=== PATIENT | male | born 1945 | race Caucasian/White ===

== ENCOUNTER → 2018-05-10 | Outpatient (CLI) | payer MEDICARE, OTHER ==
--- NOTE | 2018-05-10 08:25 | US ---
EXAMINATION TYPE: US venous doppler duplex LE RT DATE OF EXAM: 05/10/2018 7:11 AM COMPARISON: NONE CLINICAL HISTORY: Rt leg edema R60.0. Pt states right leg swelling x 3 weeks/ No known prior DVT SIDE PERFORMED: Right TECHNIQUE: The lower extremity deep venous system is examined utilizing real time linear array sonog bárbara with graded compression, doppler sonography and color-flow sonography. VESSELS IMAGED: External Iliac Vein (EIV) Common Femoral Vein Deep Femoral Vein Greater Saphenous Vein * Femoral Vein Popliteal Vein Small Saphenous Vein * Proximal Calf Veins (* superficial vessels) Right Leg: Negative for DVT, probable complex Amor's cyst right pop fossa= 6.7 x 1.3 x 4.7 cm Grayscale, color doppler, spectral doppler imaging performed of the deep veins of the right lower ex tremity. There is normal flow, compressibility, vascular waveforms. Moderate to large size popliteal cyst marked towards end of study. IMPRESSION: No ultrasound evidence for acute DVT in the right lower extremity.
== END | disposition home or self-care (01) ==
LOC: RADUSWWP 06:41
PROVIDERS: ATTEND Family Medicine
DX: R60.0 Localized edema (principal)

== ENCOUNTER 2020-05-23 03:46 | Inpatient (IN) | payer MEDICARE ==
--- NOTE | 2020-05-23 04:22 | ED ---
Abdominal Pain HPI - General Chief Complaint: Abdominal Pain Stated Complaint: Abdominal pain Time Seen by Provider: 05/23/20 03:53 Source: patient, family, RN notes reviewed, old records reviewed Mode of arrival: ambulatory Limitations: no limitations - History of Present Illness Initial Comments: This is a 74-year-old male DF for evaluation patient Dese for 3 days of constipation has history of hernia repair. Patient's pain is here no fevers. He denies any and nausea no vomiting. Appetite is been diminished. Patient has persistent abdominal pain with persistent constipation unable to have significant bowel movement again 3 days. Pain is severe mainly located right lower quadrant believes he may have eaten that MD Complaint: abdominal pain (Right lower quadrant) -: days(s) (3) Location: RLQ Radiation: RLQ Migration to: RLQ Severity: severe Severity scale (1-10): 10 Quality: stabbing, aching Consistency: constant Improves With: nothing Worsens With: nothing Associated Symptoms: nausea, constipation - Related Data Allergies Allergy/AdvReac Type Severity Reaction Status Date / Time prednisone Allergy Unknown Verified 05/23/20 03:51 Review of Systems ROS Statement: Those systems with pertinent positive or pertinent negative responses have been documented in the HPI. ROS Other: All systems not noted in ROS Statement are negative. Past Medical History Past Medical History: No Reported History History of Any Multi-Drug Resistant Organisms: None Reported Past Surgical History: Hernia Repair Smoking Status: Former smoker Past Alcohol Use History: Occasional Past Drug Use History: None Reported General Exam Limitations: no limitations General appearance: alert, in no apparent distress Head exam: Present: atraumatic, normocephalic, normal inspection Eye exam: Present: normal appearance, PERRL, EOMI. Absent: scleral icterus, conjunctival injection, periorbital swelling ENT exam: Present: normal exam, mucous membranes moist Neck exam: Present: normal inspection. Absent: tenderness, meningismus, lymphadenopathy Respiratory exam: Present: normal lung sounds bilaterally. Absent: respiratory distress, wheezes, rales, rhonchi, stridor Cardiovascular Exam: Present: regular rate, normal rhythm, normal heart sounds. Absent: systolic murmur, diastolic murmur, rubs, gallop, clicks GI/Abdominal exam: Present: distended (Right lower quadrant), tenderness, guarding, normal bowel sounds. Absent: soft, rebound, rigid Extremities exam: Present: normal inspection, full ROM, normal capillary refill. Absent: tenderness, pedal edema, joint swelling, calf tenderness Back exam: Present: normal inspection Neurological exam: Present: alert, oriented X3, CN II-XII intact Psychiatric exam: Present: normal affect, normal mood Skin exam: Present: warm, dry, intact, normal color. Absent: rash Course Vital Signs 05/23/20 05/23/20 03:47 05:52 Temperature 99.2 F Pulse Rate 94 76 Respiratory 20 20 Rate Blood Pressure 145/84 141/66 O2 Sat by Pulse 97 95 Oximetry - Reevaluation(s) Reevaluation #1: 05/23/20 06:21 Medical records reviewed Reevaluation #2: 05/23/20 06:22 Patient has good pain control Reevaluation #3: 05/23/20 06:22 Spoke with patient and regarding symptoms, and findings questions answered - Consultations Consultation #1: Spoke with Dr. Howard will keep patient in the operating room before or Medical Decision Making - Medical Decision Making 34 male DF for evaluation of severe abdominal pain. Patient will be admitted to the operating room for surgical evaluation and treatment - Lab Data Result diagrams: 05/23/20 04:31 05/23/20 04:31 Lab Results 05/23/20 05/23/20 05/23/20 Range/Units 04:31 04:31 04:31 WBC 16.9 H (3.8-10.6) k/uL RBC 5.21 (4.30-5.90) m/uL Hgb 15.0 (13.0-17.5) gm/dL Hct 46.3 (39.0-53.0) % MCV 88.9 (80.0-100.0) fL MCH 28.8 (25.0-35.0) pg MCHC 32.4 (31.0-37.0) g/dL RDW 13.7 (11.5-15.5) % Plt Count 194 (150-450) k/uL Neutrophils % 88 % Lymphocytes % 6 % Monocytes % 4 % Eosinophils % 2 % Basophils % 0 % Neutrophils # 14.8 H (1.3-7.7) k/uL Lymphocytes # 0.9 L (1.0-4.8) k/uL Monocytes # 0.7 (0-1.0) k/uL Eosinophils # 0.3 (0-0.7) k/uL Basophils # 0.0 (0-0.2) k/uL Sodium 132 L (137-145) mmol/L Potassium 4.2 (3.5-5.1) mmol/L Chloride 102 (98-107) mmol/L Carbon Dioxide 23 (22-30) mmol/L Anion Gap 7 mmol/L BUN 10 (9-20) mg/dL Creatinine 0.85 (0.66-1.25) mg/dL Est GFR (CKD-EPI)AfAm >90 (>60 ml/min/1.73 sqM) Est GFR (CKD-EPI)NonAf 85 (>60 ml/min/1.73 sqM) Glucose 130 H (74-99) mg/dL Plasma Lactic Acid Romario (0.7-2.0) mmol/L Calcium 8.8 (8.4-10.2) mg/dL Total Bilirubin 1.5 H (0.2-1.3) mg/dL AST 26 (17-59) U/L ALT 17 (4-49) U/L Alkaline Phosphatase 65 (38-126) U/L Total Protein 6.9 (6.3-8.2) g/dL Albumin 4.0 (3.5-5.0) g/dL Amylase 53 (30-110) U/L Lipase 55 (23-300) U/L Urine Color Yellow Urine Appearance Clear (Clear) Urine pH 6.0 (5.0-8.0) Ur Specific Clancy 1.016 (1.001-1.035) Urine Protein 1+ H (Negative) Urine Glucose (UA) Negative (Negative) Urine Ketones 2+ H (Negative) Urine Blood Trace H (Negative) Urine Nitrite Negative (Negative) Urine Bilirubin Negative (Negative) Urine Urobilinogen <2.0 (<2.0) mg/dL Ur Leukocyte Esterase Negative (Negative) Urine RBC 3 (0-5) /hpf Urine WBC 1 (0-5) /hpf Hyaline Casts 1 (0-2) /lpf Urine Mucus Few H (None) /hpf 05/23/20 Range/Units 04:31 WBC (3.8-10.6) k/uL RBC (4.30-5.90) m/uL Hgb (13.0-17.5) gm/dL Hct (39.0-53.0) % MCV (80.0-100.0) fL MCH (25.0-35.0) pg MCHC (31.0-37.0) g/dL RDW (11.5-15.5) % Plt Count (150-450) k/uL Neutrophils % % Lymphocytes % % Monocytes % % Eosinophils % % Basophils % % Neutrophils # (1.3-7.7) k/uL Lymphocytes # (1.0-4.8) k/uL Monocytes # (0-1.0) k/uL Eosinophils # (0-0.7) k/uL Basophils # (0-0.2) k/uL Sodium (137-145) mmol/L Potassium (3.5-5.1) mmol/L Chloride (98-107) mmol/L Carbon Dioxide (22-30) mmol/L Anion Gap mmol/L BUN (9-20) mg/dL Creatinine (0.66-1.25) mg/dL Est GFR (CKD-EPI)AfAm (>60 ml/min/1.73 sqM) Est GFR (CKD-EPI)NonAf (>60 ml/min/1.73 sqM) Glucose (74-99) mg/dL Plasma Lactic Acid Romario 0.8 (0.7-2.0) mmol/L Calcium (8.4-10.2) mg/dL Total Bilirubin (0.2-1.3) mg/dL AST (17-59) U/L ALT (4-49) U/L Alkaline Phosphatase (38-126) U/L Total Protein (6.3-8.2) g/dL Albumin (3.5-5.0) g/dL Amylase (30-110) U/L Lipase (23-300) U/L Urine Color Urine Appearance (Clear) Urine pH (5.0-8.0) Ur Specific Clancy (1.001-1.035) Urine Protein (Negative) Urine Glucose (UA) (Negative) Urine Ketones (Negative) Urine Blood (Negative) Urine Nitrite (Negative) Urine Bilirubin (Negative) Urine Urobilinogen (<2.0) mg/dL Ur Leukocyte Esterase (Negative) Urine RBC (0-5) /hpf Urine WBC (0-5) /hpf Hyaline Casts (0-2) /lpf Urine Mucus (None) /hpf - Radiology Data Radiology results: report reviewed (CT abdomen and pelvis positive for acute appendicitis), image reviewed Disposition Clinical Impression: Abdominal pain, Acute appendicitis, Acute abdomen Disposition: ADMITTED IP TO THIS HOSP Condition: Serious Is patient prescribed a controlled substance at d/c from ED?: No
[2020-05-23] MEDS ORDERED: SODIUM CHLORIDE 0.9% 1,000 ML IV STA (04:29)
[2020-05-23 04:45] LABS: Appearance,Urine Clear (Clear); Basophils % (A) 0 %; Bilirubin,Urine Negative (Negative); Blood,Urine Trace (Negative); Color,Urine Yellow; Eosinophils # (A) 0.3 k/uL (0-0.7); Eosinophils % (A) 2 %; Glucose,Urine (UA) Negative (Negative); HCT 46.3 % (39.0-53.0); Hyaline Casts,Urine 1 /lpf (0-2); Ketones,Urine 2+ (Negative); Leukocyte Esterase,Urine Negative (Negative); Lymphocytes # (A) 0.9 k/uL (1.0-4.8); Lymphocytes % (A) 6 %; MCH 28.8 pg (25.0-35.0); MCHC 32.4 g/dL (31.0-37.0); MCV 88.9 fL (80.0-100.0); Mean Platelet Volume 8.3; Monocytes # (A) 0.7 k/uL (0-1.0); Monocytes % (A) 4 %; Mucus,Urine Few /hpf; Neutrophils # (A) 14.8 k/uL (1.3-7.7); Neutrophils % (A) 88 %; Nitrite,Urine Negative (Negative); Platelet Count 194 k/uL (150-450); Protein,Urine 1+ (Negative); RBC 5.21 m/uL (4.30-5.90); RBC,Urine 3 /hpf (0-5); RDW 13.7 % (11.5-15.5); Specific Gravity,Urine 1.016 (1.001-1.035); Urobilinogen,Urine <2.0 mg/dL (<2.0); WBC 16.9 k/uL (3.8-10.6); WBC,Urine 1 /hpf (0-5)
[2020-05-23 04:53] LABS: ALT 17 U/L (4-49); AST 26 U/L (17-59); African American GFR (CKD) >90 (>60 ml/min/1.73 sqM); Alkaline Phosphatase 65 U/L (38-126); Amylase 53 U/L (30-110); Anion Gap 7 mmol/L; Blood Urea Nitrogen 10 mg/dL (9-20); Calcium 8.8 mg/dL (8.4-10.2); Carbon Dioxide 23 mmol/L (22-30); Chloride 102 mmol/L (98-107); Glucose 130 mg/dL (74-99); Non-African American GFR(CKD) 85 (>60 ml/min/1.73 sqM); Potassium 4.2 mmol/L (3.5-5.1); Sodium 132 mmol/L (137-145); Total Bilirubin 1.5 mg/dL (0.2-1.3); Total Protein 6.9 g/dL (6.3-8.2)
--- NOTE | 2020-05-23 05:25 | CT ---
EXAMINATION TYPE: CT abdomen pelvis w con DATE OF EXAM: 05/23/2020 COMPARISON: None HISTORY: connstipation x 3days CT DLP: 1022.6 mGycm Automated exposure control for dose reduction was used. CONTRAST: Performed with IV Contrast, patient injected with 100 mL of Isovue 300. There is some mild atelectasis at the lung bases. There is no pleural effusion. Heart is slightly enl arged. There are cysts in the superior right lobe of the liver that measure up to 3 cm. Spleen is intact. Th ere is small hiatal hernia. Stomach is intact. There is no pancreatic mass. Gallbladder appears karlos l. Bile ducts are not dilated. There is no adrenal mass. Kidneys show satisfactory contrast opacification. There is no hydronephrosi s. The ureters are not dilated. There is no retroperitoneal adenopathy. Bladder distends smoothly. Th ere is right-sided inguinal hernia that contains fat. There is small amount of fluid in the pelvis on the right side. There is fat stranding in the right lower quadrant. There is dilated fluid-filled appendix. Appendix measures up to 12 mm. There is appendicolith. There is no evidence of a bowel obstruction. Small bowel is not dilated. There is no evidence of cons tipation. There is prostatic calcification. The lumbar vertebra have normal alignment. There is no co mpression fracture. Posterior elements are intact. Bony pelvis is intact. There is some spurring in t he lumbar spine. IMPRESSION: Moderate fat stranding around the dilated fluid-filled appendix. Appendicitis. Appendicolith. There i s tiny amount of free fluid in the pelvis and appendiceal rupture is suspected.
[2020-05-23] MEDS ORDERED: PANTOPRAZOLE 40 MG/10 ML VIAL IVP STA (05:38)
[2020-05-23] MEDS ORDERED: ONDANSETRON 4 MG/2 ML VIAL IVP PRN (05:38)
[2020-05-23] MEDS ORDERED: MORPHINE SULFATE 4 MG/ML SYRINGE IVP PRN (05:38)
[2020-05-23] MEDS ORDERED: SODIUM CHLORIDE 0.9% 1,000 ML IV ONE ×2 (05:38→21:27)
[2020-05-23] MEDS ORDERED: AMPICILLIN-SULBACTAM 3 GM in SODIUM CHLORIDE 0.9% 100 ML IVPB STA (05:38)
[2020-05-23] MEDS ORDERED: MORPHINE SULFATE 4 MG/ML SYRINGE IVP STA (05:38)
[2020-05-23] MEDS ORDERED: ACETAMINOPHEN IV (For NPO) 1,000 MG in EMPTY BAG 1 BAG IVPB ONE (08:45)
[2020-05-23] MEDS ORDERED: TAMSULOSIN 0.4 MG CAP.ER.24H PO STA (08:45)
[2020-05-23] MEDS ORDERED: GABAPENTIN 300 MG CAP PO STA (08:45)
[2020-05-23] MEDS: ACETAMINOPHEN TAB 500 MG TAB PO SCH ×4 (09:06→23:02)
[2020-05-23] MEDS: PANTOPRAZOLE 40 MG/10 ML VIAL IVP SCH (09:07)
[2020-05-23] MEDS: HEPARIN SODIUM,PORCINE 5,000 UNIT/ML 1 ML VIAL SQ SCH ×2 (09:07→20:04)
--- NOTE | 2020-05-23 09:23 | P.GSHP ---
History of Present Illness H&P Date: 05/23/20 CHIEF COMPLAINT: Right lower quadrant abdominal pain with appendicitis over 2 days HISTORY OF PRESENT ILLNESS: The patient is a 74-year-old male who presents with over 2 day history of right lower quadrant abdominal pain that is sharp and persistent in nature. He reports eating bad broccoli in his refrigerator that has been old beyond 1-2 days and thought he had food poisoning. Denies any previous abdominal pain with the exception of constipation. 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 He does not see a ginner. Denies any pre-existing heart disease or chest pain. He rarely sees his regular doctor. Last time he saw his regular doctor was 2 years ago. He confirms prior abdominal surgery including umbilical and bilateral inguinal hernia repairs. Last colonoscopy was over 5 years. At time of asse ssment, patient's temperature was 100.3. Patient presents with CT positive appendicitis. PAST MEDICAL HISTORY: See list and reviewed PAST SURGICAL HISTORY: See list and reviewed CURRENT MEDICATIONS: See list and reviewed ALLERGIES: See list and reviewed SOCIAL HISTORY: See list and reviewed FAMILY HISTORY: See list and reviewed REVIEW OF ORGAN SYSTEMS: CONSTITUTIONAL: Present fever, no chills. Denies recent weight loss. HEENT: Denies any trouble with vision, hearing or nosebleeds. No difficulty swallowing. LYMPHATIC: The patient denies any lumps and bumps around the neck. ENDOCRINE: Denies any thyroid disorders. Denies any blood sugar glucose intolerance. RESPIRATORY: Has shortness of breath. Denies chronic cough. CARDIOVASCULAR: Denies history of chest pain with exertion. GASTROINTESTINAL: Has intermittent constipation. Last colonoscopy over 2 years ago. GENITOURINARY: Denies any blood in urine or increased urinary frequency. MUSCULOSKELETAL: Denies current joint arthritis. NEUROLOGIC: Denies any numbness or tingling along the distal extremities. No seizure disorders or headaches. PSYCHIATRIC: Denies any depression or suicidal ideation. HEMATOLOGIC: Denies any abnormal bleeding or bruising. PHYSICAL EXAMINATION: VITALS: Reviewed GENERAL: A 74-year-old male in no acute distress. Pleasant. HEENT: No sclera icterus. Extraocular movements grossly intact. Moist buccal mucosa. Head is atraumatic, normocephalic. Hears conversational speech. No nasal drainage. NECK: Supple without lymphadenopathy. No JV distention. CHEST: Non-labored respirations and equal bilateral excursions. CARDIOVASCULAR: Regular rate and rhythm. Palpable 2+ radial pulses. ABDOMEN: Soft, tender at the right lower quadrant. MUSCULOSKELETAL: No clubbing, cyanosis or edema. NEUROLOGIC: No focal or lateralizing signs. PSYCH: Appropriate affect. Alert and oriented to person, place and time. SKIN: Well perfused. Good skin turgor. LABS: Reviewed. White blood cell count elevated over 16,000. STUDIES: CT of the abdomen and pelvis independently reviewed demonstrating inflammatory changes along the entire appendix with fluid and small gas bubble highly suspicious for perforated appendicitis. This might independent interpretation. ASSESSMENT: 1. Right lower quadrant pain. 2. Appendicitis with sepsis 3. Leukocytosis. 4. Lack of general medical care 5. Dyspnea on exertion PLAN: 1. Recommend 12-lead EKG. Should he have abnormalities will need full cardiac risk assessment. 2. He reports pre-existing dyspnea and exertion over 20 years without any prior assessment. Recommend two-view chest x-ray for evaluation of COPD 3. Patient has sepsis on presentation with elevated temperature, white count over 16,000, source of infection of potential ruptured appendicitis. Inpatient hospitalization beyond 3 days described. 4. Incentive spirometer for pulmonary toilet 5. Patient's elevated risk for complications due to sepsis as well as pre- existing COPD 6. I have discussed benefits and risks of robotic appendectomy. 7. Bilateral SCDs and heparin for DVT prophylaxis 8. Antibiotics intravenous to address moderate leukocytosis with underlying sepsis 9. Scheduled Tylenol and Toradol for pain medication including fevers Thank you very much for allowing me to participate in the care of your patient. Past Medical History Past Medical History: No Reported History History of Any Multi-Drug Resistant Organisms: None Reported Past Surgical History: Hernia Repair Past Psychological History: No Psychological Hx Reported Smoking Status: Former smoker Past Alcohol Use History: Occasional Past Drug Use History: None Reported - Past Family History Mother History Unknown: Yes Family Medical History: Cancer Father History Unknown: Yes Family Medical History: Hypertension Medications and Allergies Home Medications Medication Instructions Recorded Confirmed Type No Known Home Medications 05/23/20 05/23/20 History Allergies Allergy/AdvReac Type Severity Reaction Status Date / Time prednisone Allergy Unknown Verified 05/23/20 06:29 Surgical - Exam Vital Signs Temp Pulse Resp BP Pulse Ox 99.2 F 94 20 145/84 97 05/23/20 03:47 05/23/20 03:47 05/23/20 03:47 05/23/20 03:47 05/23/20 03:47 Results - Labs 05/23/20 04:31 05/23/20 04:31 Abnormal Lab Results - Last 24 Hours (Table) 05/23/20 05/23/20 05/23/20 Range/Units 04:31 04:31 04:31 WBC 16.9 H (3.8-10.6) k/uL Neutrophils # 14.8 H (1.3-7.7) k/uL Lymphocytes # 0.9 L (1.0-4.8) k/uL Sodium 132 L (137-145) mmol/L Glucose 130 H (74-99) mg/dL Total Bilirubin 1.5 H (0.2-1.3) mg/dL Urine Protein 1+ H (Negative) Urine Ketones 2+ H (Negative) Urine Blood Trace H (Negative) Urine Mucus Few H (None) /hpf Diabetes panel 05/23/20 Range/Units 04:31 Sodium 132 L (137-145) mmol/L Potassium 4.2 (3.5-5.1) mmol/L Chloride 102 (98-107) mmol/L Carbon Dioxide 23 (22-30) mmol/L BUN 10 (9-20) mg/dL Creatinine 0.85 (0.66-1.25) mg/dL Glucose 130 H (74-99) mg/dL Calcium 8.8 (8.4-10.2) mg/dL AST 26 (17-59) U/L ALT 17 (4-49) U/L Alkaline Phosphatase 65 (38-126) U/L Total Protein 6.9 (6.3-8.2) g/dL Albumin 4.0 (3.5-5.0) g/dL Calcium panel 05/23/20 Range/Units 04:31 Calcium 8.8 (8.4-10.2) mg/dL Albumin 4.0 (3.5-5.0) g/dL Pituitary panel 05/23/20 Range/Units 04:31 Sodium 132 L (137-145) mmol/L Potassium 4.2 (3.5-5.1) mmol/L Chloride 102 (98-107) mmol/L Carbon Dioxide 23 (22-30) mmol/L BUN 10 (9-20) mg/dL Creatinine 0.85 (0.66-1.25) mg/dL Glucose 130 H (74-99) mg/dL Calcium 8.8 (8.4-10.2) mg/dL Adrenal panel 05/23/20 Range/Units 04:31 Sodium 132 L (137-145) mmol/L Potassium 4.2 (3.5-5.1) mmol/L Chloride 102 (98-107) mmol/L Carbon Dioxide 23 (22-30) mmol/L BUN 10 (9-20) mg/dL Creatinine 0.85 (0.66-1.25) mg/dL Glucose 130 H (74-99) mg/dL Calcium 8.8 (8.4-10.2) mg/dL Total Bilirubin 1.5 H (0.2-1.3) mg/dL AST 26 (17-59) U/L ALT 17 (4-49) U/L Alkaline Phosphatase 65 (38-126) U/L Total Protein 6.9 (6.3-8.2) g/dL Albumin 4.0 (3.5-5.0) g/dL Assessment and Plan (1) COPD (chronic obstructive pulmonary disease) Current Visit: Yes Status: Acute Code(s): J44.9 - CHRONIC OBSTRUCTIVE PULMONARY DISEASE, UNSPECIFIED SNOMED Code(s): 51783947 (2) Sepsis Current Visit: Yes Status: Acute Code(s): A41.9 - SEPSIS, UNSPECIFIED ORGANISM SNOMED Code(s): 95485934 (3) Acute appendicitis Current Visit: Yes Status: Acute Code(s): K35.80 - UNSPECIFIED ACUTE APPENDICITIS SNOMED Code(s): 57959667
[2020-05-23] MEDS ORDERED: PIPERACILLIN-TAZOBACTAM 3.375 GM in SODIUM CHLORIDE 0.9% 100 ML IVPB SCH (09:30)
[2020-05-23] MEDS: SODIUM CHLORIDE 0.9% 500 ML 500 ML IV SCH (09:40)
--- NOTE | 2020-05-23 09:45 | XR ---
EXAMINATION TYPE: XR chest 2V DATE OF EXAM: 05/23/2020 COMPARISON: NONE HISTORY: Shortness of breath TECHNIQUE: Frontal and lateral views of the chest are obtained. FINDINGS: Scattered senescent parenchymal changes noted. Hyperinflation compatible with COPD. No evidence for infiltrate. No evidence for atelectasis. Heart size is stable. Mediastinal structures are stable and grossly unremarkable. No evidence for hilar prominence. Degenerative changes dorsal spine. IMPRESSION: 1. No evidence for acute pulmonary disease.
--- NOTE | 2020-05-23 11:11 | P.CONS ---
History of Present Illness - Reason for Consult Consult date: 05/23/20 Medical management - Chief Complaint Right lower quadrant pain - History of Present Illness This is a 74-year-old male with Dr.Tom Barcenas who denies any major significant medical history, has been dealing with constipation for years, and has not been to his primary care in over a couple years. Currently does not take any medications. Surgical history is positive for hernia repair in 2004. He presented to the emergency room with a 2 day history of right lower quadrant abdominal pain that is sharp and persistent in nature. He believed it was his constipation after not improving decided to come to the emergency room. He described acute onset of pain 10 out of 10. Denies any shortness of breath or chest pain. CT of the abdomen revealed dilated fluid-filled appendix, appendicitis with a tiny mole of free fluid in the pelvis and appendiceal rupture is suspected. Patient was admitted to observation under Dr. Franklin plan to go for surgery today. EKG was done and normal sinus rhythm. CXR showed no acute process, patient currently on Unasyn and Zosyn IV. Blood cultures were ordered. Morphine IV ordered for pain control. Vital signs are stable, temp was 103.1 now down to 99.5, pulse 89, blood pressure 126/84, pulse ox 95% on room air Review of Systems General: Presentl fever, chills,nausea, or vomiting. HEENT: No visual changes. No eye pain. No nasal symptoms. No dysphagia.No odynophagia. No ENT pain. Cardiac: No chest pain. No palpitations. Pulmonary: No dyspnea. GI: Positive right lower quadrant abdominal pain. No diarrhea. Positive constipation. No bowel habit changes. No melena. No hematochezia. : No dysuria.No hematuria. No hesitancy. No urgency. Musculoskeletal: No musculoskeletal pain. Integumentary: Denies rash. Denies pruritis. Neurologic: Denies any lateralizing weakness. Denies headache. Denies numbness. Denies tingling. No seizure activity. Denies TIA or CVA. Endocrine: Denies Fatigue Heme/Onc: Denies anemia. Denies cancer. Denies adenopathy. Allergic/Immunologic: Denies allergies Past Medical History Additional Past Medical History / Comment(s): Constipation History of Any Multi-Drug Resistant Organisms: None Reported Past Surgical History: Hernia Repair (Hernia repair 2004) Past Psychological History: No Psychological Hx Reported Smoking Status: Former smoker Past Alcohol Use History: Occasional Past Drug Use History: None Reported - Past Family History Mother History Unknown: Yes Family Medical History: Cancer (Gallbladder cancer at 72) Father History Unknown: Yes (He ceased from plane accident at age 67) Family Medical History: Hypertension Brother(s) Family Medical History: No Reported History (One brother alive and well other brother in MVA) Medications and Allergies Home Medications Medication Instructions Recorded Confirmed Type No Known Home Medications 05/23/20 05/23/20 History Allergies Allergy/AdvReac Type Severity Reaction Status Date / Time prednisone Allergy Unknown Verified 05/23/20 06:29 Physical Exam Vitals: Vital Signs Temp Pulse Pulse Resp BP BP Pulse Ox 05/23/20 10:45 99.5 F 89 18 126/84 95 05/23/20 08:53 105 H 18 05/23/20 08:28 103.1 F H 105 H 18 160/75 94 L 05/23/20 08:03 102.4 F H 94 16 145/72 94 L 05/23/20 06:26 99.7 F H 05/23/20 05:52 76 20 141/66 95 05/23/20 03:47 99.2 F 94 20 145/84 97 Intake and Output 05/22/20 05/23/20 05/23/20 22:59 06:59 14:59 Output Total 1 Balance -1 Output: Urine 1 Other: # Voids 1 Weight 78.018 kg 78.018 kg General: Patient awake alert and oriented x 3. No acute distress. HEENT: Sclerae are clear. Pupils equal, round and reactive to light bilaterally. No cervical adenopathy. No pharyngeal erythema or exudate. No thyromegaly. Lymphatic: No anterior cervical adenopathy. Chest: Heart regular in rate and rhythm positive S1 and S2. No S3. No S4. No clicks, rubs or murmurs. Lungs: Clear to auscultation bilaterally. No wheezes rales or rhonchi. Respirations even and nonlabored. Abdomen/GI: Bowel sounds present in all 4 quadrants. Bowel sounds hypoactive. Positive tenderness right lower quadrant. No mass. No hepatomegaly or splenome fallon. No bruits. Musculoskeletal/ Extremities: No tenderness on muscular exam. No ecchymosis. Vascular: Radial pulses equal. 2/4. Skin: No rash. Neurologic: Awake, alert and oriented times 3. No lateralizing deficits noted on gross inspection. Psychiatric: Appropriate affect Results CBC & Chem 7: 05/23/20 04:31 05/23/20 04:31 Labs: Abnormal Lab Results - Last 24 Hours (Table) 05/23/20 05/23/20 05/23/20 Range/Units 04:31 04:31 04:31 WBC 16.9 H (3.8-10.6) k/uL Neutrophils # 14.8 H (1.3-7.7) k/uL Lymphocytes # 0.9 L (1.0-4.8) k/uL Sodium 132 L (137-145) mmol/L Glucose 130 H (74-99) mg/dL Total Bilirubin 1.5 H (0.2-1.3) mg/dL Urine Protein 1+ H (Negative) Urine Ketones 2+ H (Negative) Urine Blood Trace H (Negative) Urine Mucus Few H (None) /hpf Assessment and Plan Assessment: 1. Acute Appendicitis with sepsis: Plan for patient to have appendectomy with Dr. Franklin today. 2. Leukocytosis: White blood cells over 16,000, likely related to ruptured appendicitis. Patient on IV Unasyn and Zosyn. Blood cultures are pending. 3. Right lower quadrant pain: Morphine ordered as needed 4. Hyponatremia: IV fluids and place. 5. DVT prophylaxis: on heparin subcu along with sequential compression devices and MARCELLE hose. 6. GI prophylaxis: On Protonix 40 mg IV Patient will be admitted to the hospital for minimum of 2 night stay. Discharge plan: Home with self-care Impression and plan of care have been directed as dictated by the signing physician. Eloisa Hayward nurse practitioner acting as scribe for signing physician.
[2020-05-23] MEDS: KETOROLAC 15 MG/ML 1 ML VIAL IVP SCH ×3 (11:23→23:02)
[2020-05-23] MEDS ORDERED: AMPICILLIN-SULBACTAM 3 GM in SODIUM CHLORIDE 0.9% 100 ML IVPB SCH (12:00)
[2020-05-23] MEDS ORDERED: IV FLUID CONTINUATION 1,000 ML IV ONE (16:37)
[2020-05-23] MEDS ORDERED: ROCURONIUM BROMIDE 10 MG/ML 5 ML VIAL IV ONE (17:11)
[2020-05-23] MEDS ORDERED: LABETALOL 5 MG/ML VIAL MDV ONE (17:11)
[2020-05-23] MEDS ORDERED: PROPOFOL 10 MG/ML 20 ML VIAL IV ONE (17:11)
[2020-05-23] MEDS ORDERED: MIDAZOLAM 2 MG/2 ML VIAL ONE (17:11)
[2020-05-23] MEDS ORDERED: NEOSTIGMINE 1 MG/ML 10 ML VIAL ONE (17:11)
[2020-05-23] MEDS ORDERED: SUCCINYLCHOLINE CHLORIDE 100 MG/5 ML SYR IV ONE (17:11)
[2020-05-23] MEDS ORDERED: KETOROLAC 15 MG/ML 1 ML VIAL ONE (17:11)
[2020-05-23] MEDS ORDERED: fentaNYL (PF) 50 MCG/ML 2 ML AMP ONE (17:11)
[2020-05-23] MEDS ORDERED: LIDOCAINE 1% INJ 10MG/ML (20 ML MDV) ONE (17:11)
[2020-05-23] MEDS ORDERED: GLYCOPYRROLATE 0.2 MG/ML 2 ML VIAL ONE (17:11)
[2020-05-23] MEDS ORDERED: SODIUM CHLORIDE 0.9% 50 ML with ceFAZolin 2,000 MG IV ONE ×2 (17:39)
[2020-05-23] MEDS ORDERED: LIDOCAINE 0.5%-EPI 1:200,000 50 ML VIAL SQ ONE (17:54)
[2020-05-23] MEDS ORDERED: LACTATED RINGERS 1,000 ML IV ONE (17:57)
[2020-05-23] MEDS ORDERED: NALOXONE 0.4 MG/ML 1 ML VIAL IV PRN (18:47)
--- NOTE | 2020-05-23 18:47 | P.OP ---
Date of Procedure: 05/23/20 Description of Procedure: SURGEON: MARILYNN NG MD Preoperative Diagnosis: 1. Acute appendicitis with sepsis 2. Chronic obstructive pulmonary disease Postoperative Diagnosis: 1. Ruptured acute appendicitis with sepsis, localized peritonitis, abscess 2. Chronic obstructive pulmonary disease 3. Recurrent right inguinal hernia Procedure(s) Performed: 1. Robotic-assisted daVinci Xi laparoscopic appendectomy 2. Peritoneal lavage 1000 mL normal saline Anesthesia: GETA, local Surgeon: Marilynn Ng Estimated Blood Loss (ml): 5 Pathology: other (appendix, aerobic and anerobic culture of peritoneal fluid from peritonitis) Condition: stable Disposition: floor Operative Findings: 1. Localized abscess over 25-mL drained right lower quadrant 2. Gangrenous ruptured purulent appendicitis at body of the appendix with base unremarkable 3. Abdomen irrigated with 500-mL normal saline 4. Staple line hemostatic 5. Recurrent indirect inguinal hernia, right, obturator hernia INDICATIONS: The patient is a 74-year-old female who presents with acute appendicitis including fevers and sepsis. Surgical intervention was described in detail. Benefits and risks, including infection, open surgery, and possibility for additional surgery was discussed at length. Informed consent was obtained. All questions of the patient and family were answered. DESCRIPTION: The patient was transferred to the operating room and placed in supine position. The patient had previously voided. The abdomen was then prepped and draped in standard sterile fashion as Ioban was placed along the abdomen to minimize any contamination of skin floor. After a timeout protocol was performed, attention was then brought to the left upper quadrant whereby a 0 degree 5 mm laparoscopic trocar entry was performed. The abdominal cavity was entered and insufflated to 15 mmHg pressure, which was tolerated well. Diagnostic laparoscopy demonstrated no injury to bowel, viscera or mesentery. Adhesions were confirmed of the right lower quadrant of omentum, small bowel to the abdominal wall. Localized abscess was found. Next a robotic 12-mm trocar was placed along the left upper quadrant upper quadrant. A 8 mm port was placed along the left lower quadrant and another 8-mm port along the left lateral abdominal wall. Ports were placed 10 cm apart from each other including 15-20 cm away from the target anatomy of the right pelvis. The patient was then placed in Trendelenburg position, at least 16 and right side up at least 6. The robotic da Ebony XI system was primed and docked from the left side of the patient. Using atraumatic graspers and vessel sealer, the robotic system was docked and primed as described. Instruments were interchanged by the purchasing administrative assistant including graspers, robotic stapler and vessel sealer. Next, attention was brought to identify the cecum. A systematic view within the abdominal cavity was started with the small bowel which was remarkable for diffuse fibrinous exudate along the right upper quadrant. The base of the cecum was without inflammation. The appendix was ruptured near at the body with moderate dissection performed. An abscess of 25- mL was aspirated from the abdomen. A 45 mm blue robotic staple loads were fired along the base of the appendix. The staple line was hemostatic. Hemostasis was checked prior to undocking the robot. The abdomen was irrigated with at least 1000 mL normal saline. The robot was undocked. I re-scrubbed into the case. The specimen was removed from the abdominal cavity with an Endo Catch bag through the 12 mm trocar at the left upper quadrant. All instruments and pneumoperitoneum were evacuated from the abdominal cavity. Anibal Sorenson 0 Vicryl was used to close the defect of the left upper quadrant. Local anesthetic was infiltrated to all wounds for postop analgesia. All incisions were also cleansed with diluted hydrogen peroxide. Exofin glue was applied to the rest of the skin incisions. The patient had tolerated the procedure well. The patient was extubated successfully. The patient was transferred to the postanesthesia care unit in stable condition.
[2020-05-23] MEDS: PIPERACILLIN-TAZOBACTAM 3.375 GM in SODIUM CHLORIDE 0.9% 100 ML IVPB SCH (20:04)
[2020-05-24] MEDS ORDERED: SODIUM CHLORIDE 0.9% 1,000 ML IV ONE ×2 (02:02→14:38)
[2020-05-24] MEDS: PIPERACILLIN-TAZOBACTAM 3.375 GM in SODIUM CHLORIDE 0.9% 100 ML IVPB SCH ×3 (02:08→17:12)
[2020-05-24] MEDS: ACETAMINOPHEN TAB 500 MG TAB PO SCH ×4 (04:58→23:16)
[2020-05-24] MEDS: KETOROLAC 15 MG/ML 1 ML VIAL IVP SCH ×4 (04:58→23:16)
[2020-05-24 07:16] LABS: Basophils % (A) 0 %; Eosinophils # (A) 0.1 k/uL (0-0.7); Eosinophils % (A) 1 %; HCT 37.8 % (39.0-53.0); HGB 12.1 gm/dL (13.0-17.5); Lymphocytes # (A) 0.8 k/uL (1.0-4.8); Lymphocytes % (A) 8 %; MCHC 31.9 g/dL (31.0-37.0); MCV 90.9 fL (80.0-100.0); Mean Platelet Volume 8.6; Monocytes # (A) 0.3 k/uL (0-1.0); Monocytes % (A) 3 %; Neutrophils # (A) 8.7 k/uL (1.3-7.7); Neutrophils % (A) 86 %; Platelet Count 140 k/uL (150-450); RBC 4.16 m/uL (4.30-5.90)
[2020-05-24] MEDS: PANTOPRAZOLE 40 MG/10 ML VIAL IVP SCH (07:17)
[2020-05-24] MEDS: TAMSULOSIN 0.4 MG CAP.ER.24H PO SCH (07:17)
[2020-05-24] MEDS: HEPARIN SODIUM,PORCINE 5,000 UNIT/ML 1 ML VIAL SQ SCH ×2 (07:17→21:11)
[2020-05-24 07:20] LABS: Calcium 6.7 mg/dL (8.4-10.2); Potassium 3.9 mmol/L (3.5-5.1)
[2020-05-24] MEDS ORDERED: TAMSULOSIN 0.4 MG CAP.ER.24H PO STA (14:27)
--- NOTE | 2020-05-24 14:33 | P.PN ---
Subjective Progress Note Date: 05/24/20 CHIEF COMPLAINT: Ruptured appendicitis HISTORY OF PRESENT ILLNESS: The patient is a 74-year-old male status post appendectomy, 05/23/20. He reports feeling much better. His creatinine has elevated. He reports lower bladder ache. He is passing flatus and tolerating diet. No reports of nausea or vomiting. Family is at bedside. ROS: No reports of nausea and vomiting. No bowel movements. No fevers or chills. No new chest pain. No productive sputum PHYSICAL EXAM: VITAL SIGNS: Reviewed CONSTITUTIONAL: Well developed and in no acute distress. EYES: Conjuctivae without sclera icterus. Extraocular movements grossly intact. HEAD, EARS, NOSE, THROAT: Moist buccal mucosa. Head is atraumatic, n ormocephalic. Hears conversational speech. No nasal drainage. NECK: Supple. No thyroidomegaly. RESPIRATORY: Non-labored respirations and equal bilateral excursions. CARDIOVASCULAR: Palpable 2+ radial pulses. ABDOMEN: Lower abdominal fullness at bladder. Incisions are intact. No peritonitis. : Urine output low, despite 3-L bolus yesterday. MUSCULOSKELETAL: No gross deformity of the lower extremities noted. No clubbing. No cyanosis. SKIN: Good skin turgor. Well perfused. NEUROLOGIC: Cranial nerves II through XII grossly intact. No focal or lateralizing signs. PSYCH: Appropriate affect. Alert and oriented to person, place and time. CLINICAL LABS: Creatinine up from 0.85 to 1.01. WBC normal 16.1 to 10.1 ASSESSMENT: 1. Ruptured appendicitis with sepsis PLAN: 1. Young straight cath advised for clinical urinary retention. 2. Outpatient antibiotics described 3. Flomax additional dose for urinary retention. 4. Disposition pending resolution of urinary retention 5. He is using incentive spirometry increased volume from 1500 to 2000 mL today ADDENDUM: Straight cath shows 25 mL. Additional fluid bolus ordered. Objective - Vital Signs Vital signs: Vital Signs Temp 97.6 F 05/24/20 07:10 Pulse 69 05/24/20 07:40 Resp 17 05/24/20 07:40 BP 109/61 05/24/20 07:10 Pulse Ox 94 L 05/24/20 07:10 Intake & Output 05/23/20 05/24/20 05/24/20 18:59 06:59 18:59 Intake Total 1050 Output Total 32 300 480 Balance 1018 -300 -480 Weight 78.018 kg Intake: IV 1050 Output: Urine 2 300 480 Estimated Blood Loss 30 Other: # Voids 1 1 1 - Labs CBC & Chem 7: 05/25/20 10:43 05/25/20 10:43 Labs: Abnormal Lab Results - Last 24 Hours (Table) 05/24/20 05/24/20 Range/Units 06:45 06:45 RBC 4.16 L (4.30-5.90) m/uL Hgb 12.1 L (13.0-17.5) gm/dL Hct 37.8 L (39.0-53.0) % Plt Count 140 L (150-450) k/uL Neutrophils # 8.7 H (1.3-7.7) k/uL Lymphocytes # 0.8 L (1.0-4.8) k/uL Sodium 135 L (137-145) mmol/L Chloride 109 H (98-107) mmol/L Carbon Dioxide 21 L (22-30) mmol/L Calcium 6.7 L (8.4-10.2) mg/dL Microbiology - Last 24 Hours (Table) 05/23/20 09:59 Blood Culture - Preliminary Blood No Growth after 24 hours 05/23/20 09:59 Blood Culture - Preliminary Blood No Growth after 24 hours 05/23/20 18:22 Gram Stain - Preliminary Appendix Wound Culture - Preliminary 05/23/20 18:22 Anaerobic Culture - Preliminary Appendix Assessment and Plan (1) COPD (chronic obstructive pulmonary disease) Status: Acute Code(s): J44.9 - CHRONIC OBSTRUCTIVE PULMONARY DISEASE, UNSPECIFIED SNOMED Code(s): 15583540 (2) Sepsis Status: Acute Code(s): A41.9 - SEPSIS, UNSPECIFIED ORGANISM SNOMED Code(s): 03960289 (3) Acute appendicitis Status: Acute Code(s): K35.80 - UNSPECIFIED ACUTE APPENDICITIS SNOMED Code(s): 73041355
[2020-05-24] MEDS: SIMETHICONE 80 MG CHEWABLE PO SCH ×3 (16:05→21:11)
--- NOTE | 2020-05-24 16:49 | P.PN ---
Subjective Progress Note Date: 05/24/20 This is a 74-year-old male with Dr.Tom Barcenas who denies any major significant medical history, has been dealing with constipation for years, and has not been to his primary care in over a couple years. Currently does not take any medications. Surgical history is positive for hernia repair in 2004. He presented to the emergency room with a 2 day history of right lower quadrant abdominal pain that is sharp and persistent in nature. He believed it was his constipation after not improving decided to come to the emergency room. He described acute onset of pain 10 out of 10. Denies any shortness of breath or chest pain. CT of the abdomen revealed dilated fluid-filled appendix, appendicitis with a tiny mole of free fluid in the pelvis and appendiceal rupture is suspected. Patient was admitted to observation under Dr. Franklin plan to go for surgery today. EKG was done and normal sinus rhythm. CXR showed no acute process, patient currently on Unasyn and Zosyn IV. Blood cultures were ordered. Morphine IV ordered for pain control. Vital signs are stable, temp was 103.1 now down to 99.5, pulse 89, blood pressure 126/84, pulse ox 95% on room air patient examined at bedside. He does complain of lower abdomen distention and slight soreness. Patient's urine output is reduced since patient has been out of surgery yesterday. Bladder scan was negative for urinary retention according to the nurse. Vitals are stable with a temperature of 97.8 blood pressure 101/59 oxygen saturation 96% on room air respiratory rate of 14. Leukocytosis has reduced from 16-10 hemoglobin is maintained at 12. Patient was found to have a gangrenous ruptured appendicitis with localized abscess on laparoscopic evaluation . Abdominal wound irrigated with 500 mL of normal saline and localized abscess about 25 mL drained in the right lower quadrant. Patient to continue antibiotic on discharge. Augmentin prescribed by surgery for 5 days. If patient is able to urinate and able to tolerate regular diet patient can be discharged. Review of Systems General: Presentl fever, chills,nausea, or vomiting. HEENT: No visual changes. No eye pain. No nasal symptoms. No dysphagia.No odynophagia. No ENT pain. Cardiac: No chest pain. No palpitations. Pulmonary: No dyspnea. GI: Positive right lower quadrant abdominal pain. No diarrhea. Positive constipation. No bowel habit changes. No melena. No hematochezia. : No dysuria.No hematuria. No hesitancy. No urgency. Decreasing urine output Musculoskeletal: No musculoskeletal pain. Integumentary: Denies rash. Denies pruritis. Neurologic: Denies any lateralizing weakness. Denies headache. Denies numbness. Denies tingling. No seizure activity. Denies TIA or CVA. Endocrine: Denies Fatigue Heme/Onc: Denies anemia. Denies cancer. Denies adenopathy. Allergic/Immunologic: Denies allergies Objective - Vital Signs Vital signs: Vital Signs Temp 97.6 F 05/24/20 07:10 Pulse 69 05/24/20 07:40 Resp 17 05/24/20 07:40 BP 109/61 05/24/20 07:10 Pulse Ox 94 L 05/24/20 07:10 Intake & Output 05/23/20 05/24/20 05/24/20 18:59 06:59 18:59 Intake Total 1050 Output Total 32 300 50 Balance 1018 -300 -50 Weight 78.018 kg Intake: IV 1050 Output: Urine 2 300 50 Estimated Blood Loss 30 Other: # Voids 1 1 1 - Exam General: Patient awake alert and oriented x 3. No acute distress. HEENT: Sclerae are clear. Pupils equal, round and reactive to light bilaterally. No cervical adenopathy. No pharyngeal erythema or exudate. No thyromegaly. Lymphatic: No anterior cervical adenopathy. Chest: Heart regular in rate and rhythm positive S1 and S2. No S3. No S4. No clicks, rubs or murmurs. Lungs: Clear to auscultation bilaterally. No wheezes rales or rhonchi. Respirations even and nonlabored. Abdomen/GI: Bowel sounds present in all 4 quadrants. Bowel sounds hypoactive. Positive tenderness right lower quadrant. No mass. No hepatomegaly or splenomegaly. No bruits. Musculoskeletal/ Extremities: No tenderness on muscular exam. No ecchymosis. Vascular: Radial pulses equal. 2/4. Skin: No rash. Neurologic: Awake, alert and oriented times 3. No lateralizing deficits noted on gross inspection. Psychiatric: Appropriate affect - Labs CBC & Chem 7: 05/24/20 06:45 05/24/20 06:45 Labs: Abnormal Lab Results - Last 24 Hours (Table) 05/24/20 05/24/20 Range/Units 06:45 06:45 RBC 4.16 L (4.30-5.90) m/uL Hgb 12.1 L (13.0-17.5) gm/dL Hct 37.8 L (39.0-53.0) % Plt Count 140 L (150-450) k/uL Neutrophils # 8.7 H (1.3-7.7) k/uL Lymphocytes # 0.8 L (1.0-4.8) k/uL Sodium 135 L (137-145) mmol/L Chloride 109 H (98-107) mmol/L Carbon Dioxide 21 L (22-30) mmol/L Calcium 6.7 L (8.4-10.2) mg/dL Microbiology - Last 24 Hours (Table) 05/23/20 09:59 Blood Culture - Preliminary Blood No Growth after 24 hours 05/23/20 09:59 Blood Culture - Preliminary Blood No Growth after 24 hours 05/23/20 18:22 Gram Stain - Preliminary Appendix Wound Culture - Preliminary 05/23/20 18:22 Anaerobic Culture - Preliminary Appendix Assessment and Plan Plan: 1. Acute Appendicitis with sepsis: Status post appendectomy with abscess drainage with Dr. Franklin on 05/23. Plan to be discharged on Augmentin for 5 days Once patient tolerates diet and is able to urinate. 2. Leukocytosis with sepsis secondary to ruptured appendix : White blood cells over 16,000, likely related to ruptured appendicitis. On osyn. Blood cultures negative 3. Right lower quadrant pain: Morphine ordered as needed 4. Hyponatremia: IV fluids and place. 5. DVT prophylaxis: on heparin subcu along with sequential compression devices and MARCELLE hose. 6. GI prophylaxis: On Protonix 40 mg IV 7 recurrent indirect inguinal hernia stable Discharge plan: Likely discharge today once patient completed his IV bolus and tolerates a regular diet
[2020-05-25] MEDS: PIPERACILLIN-TAZOBACTAM 3.375 GM in SODIUM CHLORIDE 0.9% 100 ML IVPB SCH ×2 (02:36→11:21)
[2020-05-25 02:53] VITALS: RESP 18
[2020-05-25] MEDS: KETOROLAC 15 MG/ML 1 ML VIAL IVP SCH ×2 (05:19→11:20)
[2020-05-25] MEDS: ACETAMINOPHEN TAB 500 MG TAB PO SCH ×2 (05:19→11:21)
[2020-05-25] MEDS: SIMETHICONE 80 MG CHEWABLE PO SCH ×2 (07:35→11:19)
[2020-05-25] MEDS: TAMSULOSIN 0.4 MG CAP.ER.24H PO SCH (07:35)
[2020-05-25] MEDS: PANTOPRAZOLE 40 MG/10 ML VIAL IVP SCH (07:36)
[2020-05-25] MEDS: HEPARIN SODIUM,PORCINE 5,000 UNIT/ML 1 ML VIAL SQ SCH (07:36)
[2020-05-25 07:44] VITALS: BP 156/84; PULSE 88; TEMP 98.2
[2020-05-25 11:03] LABS: Basophils % (A) 0 %; Eosinophils # (A) 0.3 k/uL (0-0.7); Eosinophils % (A) 4 %; HCT 43.3 % (39.0-53.0); HGB 13.9 gm/dL (13.0-17.5); Lymphocytes # (A) 0.6 k/uL (1.0-4.8); Lymphocytes % (A) 8 %; MCH 28.8 pg (25.0-35.0); MCHC 32.2 g/dL (31.0-37.0); MCV 89.4 fL (80.0-100.0); Mean Platelet Volume 8.5; Monocytes # (A) 0.2 k/uL (0-1.0); Monocytes % (A) 3 %; Neutrophils # (A) 6.8 k/uL (1.3-7.7); Neutrophils % (A) 85 %; Platelet Count 199 k/uL (150-450); RBC 4.84 m/uL (4.30-5.90); RDW 13.7 % (11.5-15.5)
[2020-05-25 11:09] LABS: Albumin 3.3 g/dL (3.5-5.0); Calcium 7.8 mg/dL (8.4-10.2); Potassium 3.7 mmol/L (3.5-5.1); Total Bilirubin 1.1 mg/dL (0.2-1.3); Total Protein 5.9 g/dL (6.3-8.2)
--- NOTE | 2020-05-25 11:36 | XR ---
"EXAMINATION TYPE: XR abdomen 2V DATE OF EXAM: 05/25/2020 COMPARISON: None INDICATION: Abdominal distention TECHNIQUE: Single view abdomen frontal upright view FINDINGS: Multiple differential air-fluid levels are present within prominent small bowel loops. Small amount o f air is within the colon. Clinical consideration for small bowel obstruction is recommended. Psoas margins are normal. No organomegaly is present. Bilateral lung base pleural effusions are present. IMPRESSION: 1. Findings which can be compatible with partial small bowel obstruction or early complete small ruben l obstruction. A Red level critical message alert has been initiated for Marilynn Ng MD via the [employer] | Critical Results System on 05/25/2020 11:34 AM. This message alert has been sent to Marilynn london MD via the preferences provided by the clinician for the receipt of Radiology Critical Finding s. Message ID [id number]."
--- NOTE | 2020-05-25 12:59 | P.DS ---
Providers Date of admission: 05/23/20 10:21 Expected date of discharge: 05/25/20 Attending physician: Marilynn Ng Consults: 05/23/20 08:27 Consult Physician Routine Consulting Provider: Hasmukh Chavez Reason/Comments: Medical management Do you want consulting provider notified?: Yes Primary care physician: Mainor Barcenas - Discharge Diagnosis(es) (1) COPD (chronic obstructive pulmonary disease) Status: Acute (2) Sepsis Status: Acute (3) Acute appendicitis Status: Acute Hospital Course: CHIEF COMPLAINT: Ruptured appendicitis HISTORY OF PRESENT ILLNESS: The patient is a 74-year-old male admitted for acute appendicitis with rupture and sepsis. He is status post appendectomy, 05/23/20. Yesterday he had urinary retention which is now resolved. He is passing flatus and having bowel movements. No nausea or vomiting. He voided over 1400-mL. He reports some swelling along the pelvis and legs. He is ambulating. No new difficulties in breathing. He is anxious to get home. He does report feeling bloated but he is tolerating diet. ROS: No reports of nausea and vomiting. No fevers or chills. No new chest pain. No productive sputum PHYSICAL EXAM: VITAL SIGNS: Reviewed CONSTITUTIONAL: Well developed and in no acute distress. EYES: Conjuctivae without sclera icterus. Extraocular movements grossly intact. HEAD, EARS, NOSE, THROAT: Moist buccal mucosa. Head is atraumatic, normocephalic. Hears conversational speech. No nasal drainage. NECK: Supple. No thyroidomegaly. RESPIRATORY: Non-labored respirations and equal bilateral excursions. CARDIOVASCULAR: Palpable 2+ radial pulses. ABDOMEN: Mild distension. No peritonitis. MUSCULOSKELETAL: No gross deformity of the lower extremities noted. No clubbing. No cyanosis. SKIN: Good skin turgor. Well perfused. NEUROLOGIC: Cranial nerves II through XII grossly intact. No focal or lateralizing signs. PSYCH: Appropriate affect. Alert and oriented to person, place and time. CLINICAL LABS: Creatinine up from 0.85 to 1.01, down 0.96. WBC normal 16.1 to 10.1, now 8.0. STUDIES: Abdominal xray independently reviewed. Features consistent with ileus. RADIOLOGY: Report reviewed. ASSESSMENT: 1. Ruptured appendicitis with sepsis PLAN: 1. AXR reviewed including results with patient. He is having new bowel movements and is passing flatus. 2. Modified diet reviewed of liquids described. 3. Discharge instructions reviewed including lifting restrictions. 4. Stable for discharge with follow-up in office in 48hrs. 5. Patient and family verbalized understanding of discharge instructions with home antibiotics and Flomax for home. Patient Condition at Discharge: Stable Plan - Discharge Summary Discharge Rx Participant: No New Discharge Prescriptions: New Amoxic-Pot Clav 875-125Mg [Augmentin Xr 875-125] 1 each PO Q12HR #10 tablet Tamsulosin [Flomax] 0.4 mg PO DAILY #7 cap Ibuprofen [Motrin] 600 mg PO Q8HR PRN #30 tab PRN Reason: Pain Acetaminophen Tab [Tylenol Tab] 1,000 mg PO Q6HR PRN #30 tablet PRN Reason: Pain Discharge Medication List Acetaminophen Tab [Tylenol Tab] 1,000 mg PO Q6HR PRN #30 tablet 05/24/20 [Rx] Amoxic-Pot Clav 875-125Mg [Augmentin Xr 875-125] 1 each PO Q12HR #10 tablet 05/24/20 [Rx] Ibuprofen [Motrin] 600 mg PO Q8HR PRN #30 tab 05/24/20 [Rx] Tamsulosin [Flomax] 0.4 mg PO DAILY #7 cap 05/24/20 [Rx] Follow up Appointment(s)/Referral(s): Marilynn Ng MD [STAFF PHYSICIAN] - 05/27/20 Mainor Barcenas MD [Primary Care Provider] - 1-2 days Patient Instructions/Handouts: How to Use an Incentive Spirometer (DC), Appendicitis (GEN), Full Liquid Diet (DC), Laparoscopic Appendectomy (DC) Activity/Diet/Wound Care/Special Instructions: advance diet as tolerated, recommend yogurt, low fibre diet, education material on discharge Discharge Disposition: HOME SELF-CARE
--- NOTE | 2020-05-25 15:02 | P.PN ---
Subjective Progress Note Date: 05/25/20 This is a 74-year-old male with Dr.Tom Barcenas who denies any major significant medical history, has been dealing with constipation for years, and has not been to his primary care in over a couple years. Currently does not take any medications. Surgical history is positive for hernia repair in 2004. He presented to the emergency room with a 2 day history of right lower quadrant abdominal pain that is sharp and persistent in nature. He believed it was his constipation after not improving decided to come to the emergency room. He described acute onset of pain 10 out of 10. Denies any shortness of breath or chest pain. CT of the abdomen revealed dilated fluid-filled appendix, appendicitis with a tiny mole of free fluid in the pelvis and appendiceal rupture is suspected. Patient was admitted to observation under Dr. Franklin plan to go for surgery today. EKG was done and normal sinus rhythm. CXR showed no acute process, patient currently on Unasyn and Zosyn IV. Blood cultures were ordered. Morphine IV ordered for pain control. Vital signs are stable, temp was 103.1 now down to 99.5, pulse 89, blood pressure 126/84, pulse ox 95% on room air patient examined at bedside. He does complain of lower abdomen distention and slight soreness. Patient's urine output is reduced since patient has been out of surgery yesterday. Bladder scan was negative for urinary retention according to the nurse. Vitals are stable with a temperature of 97.8 blood pressure 101/59 oxygen saturation 96% on room air respiratory rate of 14. Leukocytosis has reduced from 16-10 hemoglobin is maintained at 12. Patient was found to have a gangrenous ruptured appendicitis with localized abscess on laparoscopic evaluation . Abdominal wound irrigated with 500 mL of normal saline and localized abscess about 25 mL drained in the right lower quadrant. Patient to continue antibiotic on discharge. Augmentin prescribed by surgery for 5 days. If patient is able to urinate and able to tolerate regular diet patient can be discharged. 05/25 patient examined bedside. Denies any shortness of breath or chest pain. Patient did have an increased soreness in the lower abdomen for which abdominal x-ray was finally obtained that suggested partial bowel obstruction. Did have a bowel movement the abdominal x-ray as well as passing flatness. Patient was able to tolerate clear liquid diet this morning. Patient instructed to advance diet slowly and to seek medical attention is started having symptoms of nausea and vomiting increased abdominal pain or fever or chills or any change in jodie ent's condition. Patient is currently medically stable to be discharged home Review of Systems General: Presentl fever, chills,nausea, or vomiting. HEENT: No visual changes. No eye pain. No nasal symptoms. No dysphagia.No odynophagia. No ENT pain. Cardiac: No chest pain. No palpitations. Pulmonary: No dyspnea. GI: Positive right lower quadrant abdominal pain improved since yesterday. No diarrhea. Positive constipation. No bowel habit changes. No melena. No hematochezia. : No dysuria.No hematuria. No hesitancy. No urgency. Decreasing urine output Musculoskeletal: No musculoskeletal pain. Integumentary: Denies rash. Denies pruritis. Neurologic: Denies any lateralizing weakness. Denies headache. Denies numbness. Denies tingling. No seizure activity. Denies TIA or CVA. Endocrine: Denies Fatigue Heme/Onc: Denies anemia. Denies cancer. Denies adenopathy. Allergic/Immunologic: Denies allergies Objective - Vital Signs Vital signs: Vital Signs Temp 98.2 F 05/25/20 07:00 Pulse 88 05/25/20 07:00 Resp 18 05/25/20 07:30 BP 156/84 05/25/20 07:00 Pulse Ox 95 05/25/20 07:00 Intake & Output 05/24/20 05/25/20 05/25/20 18:59 06:59 18:59 Output Total 880 1425 Balance -880 -1425 Output: Urine 880 1425 Other: Voiding Method Toilet Toilet Urinal Urinal # Voids 1 2 # Bowel Movements 1 - Exam General: Patient awake alert and oriented x 3. No acute distress. HEENT: Sclerae are clear. Pupils equal, round and reactive to light bilaterally. No cervical adenopathy. No pharyngeal erythema or exudate. No thyromegaly. Lymphatic: No anterior cervical adenopathy. Chest: Heart regular in rate and rhythm positive S1 and S2. No S3. No S4. No clicks, rubs or murmurs. Lungs: Clear to auscultation bilaterally. No wheezes rales or rhonchi. Respirations even and nonlabored. Abdomen/GI: Bowel sounds present in all 4 quadrants. Bowel sounds hypoactive. Tenderness improved No mass. No hepatomegaly or splenomegaly. No bruits. Musculoskeletal/ Extremities: No tenderness on muscular exam. No ecchymosis. Vascular: Radial pulses equal. 2/4. Skin: No rash. Neurologic: Awake, alert and oriented times 3. No lateralizing deficits noted on gross inspection. Psychiatric: Appropriate affect - Labs CBC & Chem 7: 05/25/20 10:43 05/25/20 10:43 Labs: Abnormal Lab Results - Last 24 Hours (Table) 05/25/20 05/25/20 Range/Units 10:43 10:43 Lymphocytes # 0.6 L (1.0-4.8) k/uL Sodium 136 L (137-145) mmol/L Carbon Dioxide 21 L (22-30) mmol/L Glucose 109 H (74-99) mg/dL Calcium 7.8 L (8.4-10.2) mg/dL Total Protein 5.9 L (6.3-8.2) g/dL Albumin 3.3 L (3.5-5.0) g/dL Microbiology - Last 24 Hours (Table) 05/23/20 09:59 Blood Culture - Preliminary Blood No Growth after 48 hours 05/23/20 09:59 Blood Culture - Preliminary Blood No Growth after 48 hours 05/23/20 18:22 Gram Stain - Preliminary Appendix Wound Culture - Preliminary Gram Neg Bacilli Assessment and Plan Plan: 1. Acute Appendicitis with sepsis: Status post appendectomy with abscess drainage with Dr. Franklin on 05/23. Augmentin on discharge 2. Leukocytosis with sepsis secondary to ruptured appendix : White blood cells over 16,000, likely related to ruptured appendicitis. On osyn. Blood cultures negative 3. She'll small bowel obstruction likely secondary to ileus Resolved Morphine ordered as needed 4. Hyponatremia: Resolved 5. DVT prophylaxis: on heparin subcu along with sequential compression devices and MARCELLE hose. 6. GI prophylaxis: On Protonix 40 mg IV 7 recurrent indirect inguinal hernia stable Discharge plan: Likely discharge today
--- NOTE | 2020-05-26 06:00 | CDI ---
Documentation Clarification Form Date: 05/26/2020 From: Zac Pena Phone: If you have a question about this query, please contact [employer] at [phone] between 8am and 5pm. Admit Date: 05/23/2020 Discharge Date: 05/26/2020 Patient Name: Rex Estrada Visit Number: [id number] ATTENTION: The Clinical Documentation Specialists (CDI) and [facility] Coding Staff appreciate your assistance in clarifying documentation. Please respond to the clarification below the line at the bottom and electronically sign. The CDI & [facility] Coding staff will review the response and follow-up if needed. Please note: Queries are made part of the Legal Health Record. If you have any questions, please contact the author of this message via ITS. Dear Marilynn Wolfe MD., Ileus is documented in the 05/25 progress note "small bowel obstruction likely secondary to ileus". Patients Admitting Diagnosis:Appendicitis Post-Operative Diagnosis: Ruptured acute appendicitis with sepsis, localized peritonitis, abscess Procedure performed: Robotic-assisted daVinci Xi laparoscopic appendectomy History/Risk Factors: Appendicitis, sepsis Abdominal x-ray independently reviewed.Features consistent with ileus. In order to accurately reflect this patients severity of illness, please clarify if the Ileus is___ -is a complication of surgical procedure -is an expected outcome of the surgical procedure -is related to co-morbid condition(s) of -Other please specify -Unable to determine -is related to co-morbid condition(s) of ruptured appendicitis with sepsis 05/26/20@ 16:57 MTDD
== END 2020-05-25 13:31 | disposition home or self-care (01) | DRG 853 ==
LOC: EC 03:46 → 1SOBS 05:38 → OBSVTOIN 10:21 → 4SSUR 18:50
PROVIDERS: ADMIT Surgery Plastic and Reconstructive Surgery; ATTEND Surgery Plastic and Reconstructive Surgery
PROC: 0DTJ4ZZ Resection of Appendix, Percutaneous Endoscopic Approach (ICD-10-PCS; principal; 2020-05-23 08:00)
PROC: 3E1M38Z Irrigation of Peritoneal Cavity using Irrigating Substance, Percutaneous Approach (ICD-10-PCS; principal; 2020-05-23 08:00)
PROC: 8E0W4CZ Robotic Assisted Procedure of Trunk Region, Percutaneous Endoscopic Approach (ICD-10-PCS; principal; 2020-05-23 08:00)
DX: A41.9 Sepsis, unspecified organism (principal); K35.33 Acute appendicitis with perforation, localized peritonitis, and gangrene, with abscess; E87.1 Hypo-osmolality and hyponatremia; K56.7 Ileus, unspecified; J44.9 Chronic obstructive pulmonary disease, unspecified; K40.91 Unilateral inguinal hernia, without obstruction or gangrene, recurrent; K59.00 Constipation, unspecified; R33.9 Retention of urine, unspecified; Z88.8 Allergy status to other drugs, medicaments and biological substances; Z98.890 Other specified postprocedural states; Z87.891 Personal history of nicotine dependence; Z82.49 Family history of ischemic heart disease and other diseases of the circulatory system; Z80.0 Family history of malignant neoplasm of digestive organs
CPT/HCPCS: 36415; 71046; 74019; 74177; 80048; 80053; 81001; 82150; 83605; 83690; 85025; 87040; 87070; 87075; 87077; 87186; 87205; 88304; 93005; 96361; 96365; 96375; 96376; 99285

== ENCOUNTER 2021-05-12 10:06 | Emergency (ER) | payer MEDICARE ==
[2021-05-12 10:14] VITALS: RESP 18
--- NOTE | 2021-05-12 10:37 | ED ---
General Adult HPI - General Chief complaint: ENT Stated complaint: Sore Throat Time Seen by Provider: 05/12/21 10:18 Source: patient, RN notes reviewed Mode of arrival: ambulatory Limitations: no limitations - History of Present Illness Initial comments: 75-year-old male presents emergency Department chief complaint of possible COVID-19. Patient states that his was cause one week ago. He has a mild sore throat though he states is not out of the usual. No coffee-ground it chest pain shortness breath cough or GI symptoms. He does state that he has COPD. No reported fevers. - Related Data Previous Rx's Medication Instructions Recorded Acetaminophen Tab [Tylenol Tab] 1,000 mg PO Q6HR PRN #30 tablet 05/24/20 Amoxic-Pot Clav 875-125Mg 1 each PO Q12HR #10 tablet 05/24/20 [Augmentin Xr 875-125] Ibuprofen [Motrin] 600 mg PO Q8HR PRN #30 tab 05/24/20 Tamsulosin [Flomax] 0.4 mg PO DAILY #7 cap 05/24/20 Allergies Allergy/AdvReac Type Severity Reaction Status Date / Time prednisone Allergy Unknown Verified 05/12/21 10:14 Review of Systems ROS Statement: Those systems with pertinent positive or pertinent negative responses have been documented in the HPI. ROS Other: All systems not noted in ROS Statement are negative. Past Medical History Past Medical History: COPD Additional Past Medical History / Comment(s): Constipation History of Any Multi-Drug Resistant Organisms: None Reported Past Surgical History: Hernia Repair Past Psychological History: No Psychological Hx Reported Smoking Status: Former smoker Past Alcohol Use History: Occasional Past Drug Use History: None Reported - Past Family History Mother History Unknown: Yes Family Medical History: Cancer (Gallbladder cancer at 72) Father History Unknown: Yes (He ceased from plane accident at age 67) Family Medical History: Hypertension Brother(s) Family Medical History: No Reported History (One brother alive and well other brother in MVA) General Exam Limitations: no limitations General appearance: alert, in no apparent distress Head exam: Present: atraumatic, normocephalic, normal inspection Eye exam: Present: normal appearance, PERRL, EOMI. Absent: scleral icterus, conjunctival injection, periorbital swelling ENT exam: Present: normal exam, normal oropharynx Neck exam: Present: normal inspection, full ROM. Absent: tenderness, meningismus, lymphadenopathy Respiratory exam: Present: normal lung sounds bilaterally. Absent: respiratory distress, wheezes, rales, rhonchi, stridor Cardiovascular Exam: Present: regular rate, normal rhythm, normal heart sounds. Absent: systolic murmur, diastolic murmur, rubs, gallop, clicks Course Vital Signs 05/12/21 10:12 Temperature 97.7 F Pulse Rate 73 Respiratory 18 Rate Blood Pressure 161/86 O2 Sat by Pulse 98 Oximetry Medical Decision Making - Medical Decision Making Patient's vitals are stable. Patient is positive for COVID-19. Patient did receive monoclonal antibodies will be discharged in stable condition. - Lab Data Lab Results 05/12/21 Range/Units 10:34 Coronavirus (PCR) Detected A (Not Detectd) Disposition Clinical Impression: COVID-19 Disposition: HOME SELF-CARE Condition: Stable Instructions (If sedation given, give patient instructions): Coronavirus Disease 2019 (COVID-19) Additional Instructions: Please return to the Emergency Department if symptoms worsen or any other concerns. Is patient prescribed a controlled substance at d/c from ED?: No Referrals: Mainor Barcenas MD [Primary Care Provider] - 1-2 days Time of Disposition: 12:01
[2021-05-12] MEDS ORDERED: SODIUM CHLORIDE 0.9% 50 ML IVPB ONE (11:45)
[2021-05-12] MEDS ORDERED: CASIRIVIMAB (REGN10933) (EUA) 600 MG, IMDEVIMAB (REGN10987) (EUA) 600 MG in SODIUM CHLO... IVPB ONE (11:45)
[2021-05-12 13:10] VITALS: BP 148/85; PULSE 60; TEMP 97.1
== END 2021-05-12 13:23 | disposition home or self-care (01) ==
LOC: EC 10:06
DX: U07.1 COVID-19 (principal); J44.9 Chronic obstructive pulmonary disease, unspecified; Z87.891 Personal history of nicotine dependence
CPT/HCPCS: 99283; 96365; 87635; Q0243